=== PATIENT | female | born 1955 | race Caucasian/White ===

== ENCOUNTER 2024-10-05 10:45 | Emergency (ER) | payer MEDICARE, OTHER ==
[~2024-10-05] VITALS: Ht 172.7 cm; Wt 55.7 kg
[2024-10-05] MEDS ORDERED: PREMARIN0.3 MG PO (11:14)
[2024-10-05] MEDS ORDERED: VENTOLIN HFA18 GM INH (11:15)
[2024-10-05] MEDS ORDERED: HYDROCODONE/APAP 10/325 1 TAB PO ONE (11:45)
[2024-10-05] MEDS ORDERED: CYCLOBENZAPRINE10 MG PO (14:05)
[2024-10-05] MEDS ORDERED: HYDROCODON-ACE1 EA10 PO (14:05)
[2024-10-05] MEDS ORDERED: LIDODERM1 EACH TOP (14:05)
[2024-10-05] MEDS ORDERED: ONDANSETRON 4 MG TAB ODT SL ONE (15:00)
[2024-10-05] MEDS ORDERED: ONDANSETRON HCL4 MG PO (15:00)
[2024-10-05 17:06] VITALS: BP 146/97
== END 2024-10-05 17:08 | disposition home or self-care (01) ==
LOC: ED 10:45
DX: S13.4XXA Sprain of ligaments of cervical spine, initial encounter (principal); M54.9 Dorsalgia, unspecified; J44.9 Chronic obstructive pulmonary disease, unspecified; Z88.1 Allergy status to other antibiotic agents; Z79.890 Hormone replacement therapy; W19.XXXA Unspecified fall, initial encounter
CPT/HCPCS: 70450; 71250; 72125; 74176; 99283-25; A9270